=== PATIENT | male | born 1975 | race Caucasian/White ===

== ENCOUNTER 2018-10-31 09:00 | Emergency (ER) | payer OTHER ==
[2018-10-31 09:07] VITALS: BP 177/104; PULSE 72; RESP 18; TEMP 97.6
[2018-10-31] MEDS ORDERED: KETOROLAC 30 MG/ML 1 ML VIAL IM STA (09:23)
--- NOTE | 2018-10-31 09:25 | ED ---
Lower Extremity Injury HPI - General Chief Complaint: Extremity Injury, Lower Stated Complaint: [facility] - rt knee injury Time Seen by Provider: 10/31/18 09:08 Source: patient, RN notes reviewed, old records reviewed Mode of arrival: ambulatory Limitations: no limitations - History of Present Illness Initial Comments: Patient is a 42-year-old male who presents weren't department today with complaints of right knee pain. Patient reports that he's been having chronic issues with his knee after he fractured his patella 2 years ago. He states that he is in place had arthritis with the management after his patella fracture. Patient states that yesterday he was cleaning his barn when he slipped and fell on Saturday. He reports that his knee bent backward. Stretched his quadricep muscle. He complains of medial knee pain. - Related Data Home Medications Medication Instructions Recorded Confirmed Dextroamphetamine/Amphetamine 20 mg PO TID 10/31/18 10/31/18 [Adderall] Previous Rx's Medication Instructions Recorded Ibuprofen 600 mg PO TID #30 tablet 10/31/18 traMADol HCL [Ultram] 50 mg PO Q6HR PRN 3 Days #12 tab 10/31/18 Allergies Allergy/AdvReac Type Severity Reaction Status Date / Time No Known Allergies Allergy Verified 10/31/18 09:13 Review of Systems ROS Statement: Those systems with pertinent positive or pertinent negative responses have been documented in the HPI. ROS Other: All systems not noted in ROS Statement are negative. Past Medical History Past Medical History: No Reported History History of Any Multi-Drug Resistant Organisms: None Reported Past Surgical History: No Surgical Hx Reported Past Psychological History: ADD/ADHD Smoking Status: Never smoker Past Alcohol Use History: Occasional Past Drug Use History: None Reported General Exam Limitations: no limitations General appearance: alert, in no apparent distress Head exam: Present: atraumatic, normocephalic, normal inspection Eye exam: Present: normal appearance, PERRL, EOMI. Absent: scleral icterus, conjunctival injection, periorbital swelling ENT exam: Present: normal exam, mucous membranes moist Neck exam: Present: normal inspection. Absent: tenderness, meningismus, lymphadenopathy Respiratory exam: Present: normal lung sounds bilaterally. Absent: respiratory distress, wheezes, rales, rhonchi, stridor Cardiovascular Exam: Present: regular rate, normal rhythm, normal heart sounds. Absent: systolic murmur, diastolic murmur, rubs, gallop, clicks GI/Abdominal exam: Present: soft, normal bowel sounds. Absent: distended, tenderness, guarding, rebound, rigid Extremities exam: Present: normal inspection, full ROM, normal capillary refill. Absent: tenderness, pedal edema, joint swelling, calf tenderness Right Upper Leg exam: Present: normal inspection, full ROM Knee exam: Present: normal inspection, tenderness (Over her medial meniscus) Lower Leg exam: Present: normal inspection, full ROM Ankle exam: Present: normal inspection, full ROM Foot/Toe exam: Present: normal inspection, full ROM Back exam: Present: normal inspection Neurological exam: Present: alert, oriented X3, CN II-XII intact Psychiatric exam: Present: normal affect, normal mood Skin exam: Present: warm Course Vital Signs 10/31/18 09:05 Temperature 97.6 F Pulse Rate 72 Respiratory 18 Rate Blood Pressure 177/104 O2 Sat by Pulse 99 Oximetry Procedures - Orthopedic Splinting/Casting Injury #1 Side: right Lower Extremity Injury Location: knee Lower Extremity Immobilizer: knee immobilizer Medical Decision Making - Medical Decision Making 42-year-old male presents returns today with complaints of medial knee pain after slipping on Saturday yesterday causing his knee to stretch. He reports he felt a pop. Patient has tenderness and laxity over the medial collateral ligament. Patient is neurovascularly intact. Less than 2 second capillary refill and warm extremity noted. Patient knee x-rays reviewed and negative for any acute process. Aside Patient is placed in knee immobilizer. I discussed the Patient needs to follow-up with forensic specialist for possible further testing including MRI. Discussed antibiotic treatment medications for pain. Patient was given a note for work for short periods started to follow-up with orthopedics. SINCE HER RETURN PARAMETERS WERE DISCUSSED. - Radiology Data Radiology results: report reviewed No Acute fracture dislocation within the right knee. Disposition Clinical Impression: Right knee sprain Disposition: HOME SELF-CARE Condition: Good Instructions (If sedation given, give patient instructions): Knee Sprain (ED) Additional Instructions: Patient has follow-up with forensic specialist. Return to emergency depa rtment if any alarming signs or symptoms occur. Prescriptions: Ibuprofen 600 mg PO TID #30 tablet traMADol HCL [Ultram] 50 mg PO Q6HR PRN 3 Days #12 tab PRN Reason: Pain Is patient prescribed a controlled substance at d/c from ED?: No Referrals: Nonstaff,Physician [REFERRING] - 1-2 days Bigg Stephen PAC [PHYSICIAN GRAVITY PROSPECTING OBSERVER HELPER] - 1-2 days Time of Disposition: 09:45
--- NOTE | 2018-10-31 09:41 | XR ---
EXAMINATION TYPE: XR knee complete RT DATE OF EXAM: 10/31/2018 CLINICAL HISTORY: Right knee pain after fall TECHNIQUE: Three views of the right knee are obtained. COMPARISON: None. FINDINGS: There is no acute fracture/dislocation evident in right knee. The tri-compartment joint s paces demonstrate mild medial compartment joint space narrowing and subchondral cystic change of the tibial eminence. The overlying soft tissue appears unremarkable. IMPRESSION: There is no acute fracture or dislocation in the right knee.
== END 2018-10-31 10:10 | disposition home or self-care (01) ==
LOC: EC 09:00
DX: S83.91XA Sprain of unspecified site of right knee, initial encounter (principal); F90.9 Attention-deficit hyperactivity disorder, unspecified type; Z79.899 Other long term (current) drug therapy; W01.0XXA Fall on same level from slipping, tripping and stumbling without subsequent striking against object, initial encounter; Y93.H9 Activity, other involving exterior property and land maintenance, building and construction; Y92.69 Other specified industrial and construction area as the place of occurrence of the external cause; Y99.0 Civilian activity done for income or pay
CPT/HCPCS: 96372; 99284

== ENCOUNTER 2021-03-10 09:03 | Emergency (ER) | payer OTHER ==
[2021-03-10 09:14] VITALS: BP 128/77; PULSE 80; RESP 20; TEMP 98.7
--- NOTE | 2021-03-10 09:43 | ED ---
Lower Extremity Injury HPI - General Chief Complaint: Extremity Injury, Lower Stated Complaint: Foot injury Time Seen by Provider: 03/10/21 09:16 Source: patient, RN notes reviewed Mode of arrival: ambulatory Limitations: no limitations - History of Present Illness Initial Comments: 45-year-old male presents emergency Department with chief complaint right foot and ankle pain. 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 Patient states that he attempted to work at night states pain is been worsening along with increase in swelling. Patient does have some mild bruising noted no prior injuries and denies any prior fractures - Related Data Home Medications Medication Instructions Recorded Confirmed Dextroamphetamine/Amphetamine 20 mg PO TID 10/31/18 03/10/21 [Adderall] Ibuprofen [Motrin] 800 mg PO Q8H PRN 03/10/21 03/10/21 Previous Rx's Medication Instructions Recorded Ibuprofen [Motrin] 600 mg PO Q8HR PRN #20 tab 03/10/21 Allergies Allergy/AdvReac Type Severity Reaction Status Date / Time No Known Allergies Allergy Verified 03/10/21 10:14 Review of Systems ROS Statement: Those systems with pertinent positive or pertinent negative responses have been documented in the HPI. ROS Other: All systems not noted in ROS Statement are negative. Past Medical History Past Medical History: No Reported History History of Any Multi-Drug Resistant Organisms: None Reported Past Surgical History: Appendectomy Past Psychological History: ADD/ADHD Smoking Status: Never smoker Past Alcohol Use History: Occasional Past Drug Use History: None Reported General Exam Limitations: no limitations General appearance: alert, in no apparent distress Head exam: Present: atraumatic, normocephalic, normal inspection Respiratory exam: Present: normal lung sounds bilaterally. Absent: respiratory distress, wheezes, rales, rhonchi, stridor Cardiovascular Exam: Present: regular rate, normal rhythm, normal heart sounds. Absent: systolic murmur, diastolic murmur, rubs, gallop, clicks Extremities exam: Present: other (Right foot there is some swelling, ecchymosis noted the proximal foot, ankle region there is no significant malleolar tenderness no distal metatarsal tenderness including digits. Neurovascular intact) Skin exam: Present: warm, dry, intact, normal color. Absent: rash Course Vital Signs 08/27/21 09:12 Temperature 98.7 F Pulse Rate 80 Respiratory 20 Rate Blood Pressure 128/77 O2 Sat by Pulse 96 Oximetry Medical Decision Making - Medical Decision Making [id number] presented for right foot and ankle pain x-ray does not show an acute fracture. Patient has a right foot sprain we discharged in stable condition return parameters were discussed. Patient provided on-call orthopedics if no improvement. Disposition Clinical Impression: Right foot sprain Disposition: HOME SELF-CARE Condition: Stable Instructions (If sedation given, give patient instructions): Foot Sprain (ED) Additional Instructions: Please return to the Emergency Department if symptoms worsen or any other concerns. Prescriptions: Ibuprofen [Motrin] 600 mg PO Q8HR PRN #20 tab PRN Reason: Pain Is patient prescribed a controlled substance at d/c from ED?: No Referrals: Rg Gonzalez MD [Primary Care Provider] - 1-2 days Joce Warner MD [STAFF PHYSICIAN] - 1-2 days Time of Disposition: 10:29
--- NOTE | 2021-03-10 10:11 | XR ---
EXAMINATION TYPE: XR ankle complete 3 views RT, XR foot complete 3 views RT DATE OF EXAM: 03/10/2021 COMPARISON: NONE HISTORY: 45-year-old male dorsal right foot pain, swelling, and bruising for 3 days after injury. FINDINGS: Ankle: Ankle mortise is congruent. Preservation of the distal tibia-fibula overlap. Talar dome is intact. So me anterior soft tissue swelling is noted. No delineation to the Achilles tendon. Subtalar joint is a ligned. Foot: Dorsal ankle soft tissue swelling. No acute fracture, subluxation, dislocation. Some mild spurring al delfino the dorsal talar neck. IMPRESSION (ankle and foot): 1. Dorsal hindfoot soft tissue swelling. 2. Mild bony spurring noted along the dorsal talar neck. However, no acute osseous abnormality seen.
[2021-03-10] MEDS ORDERED: ACET/COD 300 MG/30 MG STARTER PACK 6 TAB BTL PO STA (10:34)
== END 2021-03-10 11:15 | disposition home or self-care (01) ==
LOC: EC 09:03
DX: S93.601A Unspecified sprain of right foot, initial encounter (principal); F90.9 Attention-deficit hyperactivity disorder, unspecified type; Y93.61 Activity, american tackle football
CPT/HCPCS: 99283

== ENCOUNTER 2021-08-18 00:28 | Emergency (ER) | payer OTHER ==
[2021-08-18] MEDS ORDERED: ALTEPLASE BOLUS 1 MG/1 ML SYRINGE IV STA (00:32)
[2021-08-18] MEDS ORDERED: ALTEPLASE 81 MG in EMPTY BAG 1 BAG IV STA (00:32)
--- NOTE | 2021-08-18 00:55 | CT ---
EXAMINATION TYPE: CODE STROKE: CT brain wo contr DATE OF EXAM: 08/18/2021 COMPARISON: None HISTORY: ams CT DLP: 1231.8 mGycm. Automated Exposure Control for Dose Reduction was Utilized. TECHNIQUE: CT scan of the head is performed without contrast. Ventricles have normal size. There is no mass effect or midline shift. There is no sign of intracrani al hemorrhage. The calvarium is intact. There is normal aeration of the mastoid sinuses. There is hallie e mucosal thickening in the ethmoid air cells. Skull base is intact. IMPRESSION: Negative CT scan of the brain. Mild ethmoid sinusitis.
[2021-08-18 00:57] LABS: Glucose,Whole Blood 113 mg/dL (75-99)
[2021-08-18] MEDS ORDERED: Alteplase PER PHARMACY Stroke 1 EACH MISC MISCELLANE PRN (01:00)
[2021-08-18 01:06] LABS: Basophils % (A) 0 %; Eosinophils # (A) 0.1 k/uL (0-0.7); Eosinophils % (A) 2 %; HCT 41.6 % (39.0-53.0); HGB 14.2 gm/dL (13.0-17.5); Lymphocytes # (A) 3.1 k/uL (1.0-4.8); Lymphocytes % (A) 41 %; MCH 30.6 pg (25.0-35.0); MCHC 34.2 g/dL (31.0-37.0); MCV 89.5 fL (80.0-100.0); Mean Platelet Volume 7.9; Monocytes # (A) 0.5 k/uL (0-1.0); Monocytes % (A) 7 %; Neutrophils # (A) 3.5 k/uL (1.3-7.7); Neutrophils % (A) 47 %; Platelet Count 207 k/uL (150-450); RBC 4.65 m/uL (4.30-5.90); WBC 7.6 k/uL (3.8-10.6)
--- NOTE | 2021-08-18 01:12 | ED ---
Neuro HPI - General Chief Complaint: Neuro Symptoms/Deficit Stated Complaint: Stroke Time Seen by Provider: 08/18/21 00:30 Source: patient, family, EMS Mode of arrival: EMS Limitations: altered mental status (Delirium versus intoxication) - History of Present Illness Is the patient presenting with stroke symptoms?: Yes Last Known Well Date: 08/17/21 Last Known Well Time: 23:00 Onset/Timin -: hour(s) Initial Comments: This patient is a 45-year-old man brought by ambulance to be evaluated for suspected stroke. Most history is from patient's who states that the patient had gone to bed normal at 11 PM. She Him at midnight and he had left-sided facial weakness left arm and left leg weakness. Patient had been drinking alcohol earlier probably up to 12 beers or so. The patient denies headache. Denies dyspnea. He is having nausea. Location: left face, left arm, left leg History of same: No Place: home Severity: severe Quality: weak, numb Improves With: none Worsens With: none On Anticoagulants: No Associated Symptoms: nausea/vomiting Treatments Prior to Arrival: none - Related Data Home Medications: Home Medications Medication Instructions Recorded Confirmed Dextroamphetamine/Amphetamine 20 mg PO TID 10/31/18 03/10/21 [Adderall] Ibuprofen [Motrin] 800 mg PO Q8H PRN 03/10/21 03/10/21 Previous Rx's Medication Instructions Recorded Ibuprofen [Motrin] 600 mg PO Q8HR PRN #20 tab 03/10/21 Allergies/Adverse Reactions: Allergies Allergy/AdvReac Type Severity Reaction Status Date / Time No Known Allergies Allergy Verified 03/10/21 10:14 Review of Systems ROS Statement: Those systems with pertinent positive or pertinent negative responses have been documented in the HPI. ROS Other: All systems not noted in ROS Statement are negative. General Exam Limitations: altered mental status (Delirium versus intoxication) General appearance: appears intoxicated Head exam: Present: atraumatic, normocephalic Eye exam: Present: normal appearance, PERRL. Absent: scleral icterus, conjunctival injection ENT exam: Present: normal oropharynx, mucous membranes moist Neck exam: Present: normal inspection, full ROM. Absent: tenderness, meningismus Respiratory exam: Present: normal lung sounds bilaterally. Absent: respiratory distress, wheezes, rales, rhonchi, stridor Cardiovascular Exam: Present: regular rate, normal rhythm, normal heart sounds. Absent: systolic murmur, diastolic murmur, rubs, gallop GI/Abdominal exam: Present: soft. Absent: distended, tenderness, guarding, rebound, rigid, mass Extremities exam: Present: normal inspection, normal capillary refill. Absent: pedal edema, calf tenderness Back exam: Present: normal inspection. Absent: vertebral tenderness Neurological exam: Present: alert, CN II-XII intact, motor sensory deficit, other (The patient does have left-sided facial and body weakness. See attached NIH score). Absent: oriented X3 (Patient is oriented only to person.) Skin exam: Present: warm, dry, intact, normal color. Absent: rash Stroke MDM - Lab Data Result diagrams: 08/18/21 00:50 08/18/21 00:50 Lab Results 08/18/21 08/18/21 08/18/21 Range/Units 00:46 00:50 00:50 WBC 7.6 (3.8-10.6) k/uL RBC 4.65 (4.30-5.90) m/uL Hgb 14.2 (13.0-17.5) gm/dL Hct 41.6 (39.0-53.0) % MCV 89.5 (80.0-100.0) fL MCH 30.6 (25.0-35.0) pg MCHC 34.2 (31.0-37.0) g/dL RDW 13.0 (11.5-15.5) % Plt Count 207 (150-450) k/uL MPV 7.9 Neutrophils % 47 % Lymphocytes % 41 % Monocytes % 7 % Eosinophils % 2 % Basophils % 0 % Neutrophils # 3.5 (1.3-7.7) k/uL Lymphocytes # 3.1 (1.0-4.8) k/uL Monocytes # 0.5 (0-1.0) k/uL Eosinophils # 0.1 (0-0.7) k/uL Basophils # 0.0 (0-0.2) k/uL PT 10.5 (9.0-12.0) sec INR 1.0 (<1.2) APTT 22.0 (22.0-30.0) sec Sodium (137-145) mmol/L Potassium (3.5-5.1) mmol/L Chloride (98-107) mmol/L Carbon Dioxide (22-30) mmol/L Anion Gap mmol/L BUN (9-20) mg/dL Creatinine (0.66-1.25) mg/dL Est GFR (CKD-EPI)AfAm (>60 ml/min/1.73 sqM) Est GFR (CKD-EPI)NonAf (>60 ml/min/1.73 sqM) Glucose (74-99) mg/dL POC Glucose (mg/dL) 113 H (75-99) mg/dL POC Glu Assistant Mechanic ID Dutch Mcneill Calcium (8.4-10.2) mg/dL Total Bilirubin (0.2-1.3) mg/dL AST (17-59) U/L ALT (4-49) U/L Alkaline Phosphatase (38-126) U/L Troponin I (0.000-0.034) ng/mL Total Protein (6.3-8.2) g/dL Albumin (3.5-5.0) g/dL 08/18/21 08/18/21 Range/Units 00:50 00:50 WBC (3.8-10.6) k/uL RBC (4.30-5.90) m/uL Hgb (13.0-17.5) gm/dL Hct (39.0-53.0) % MCV (80.0-100.0) fL MCH (25.0-35.0) pg MCHC (31.0-37.0) g/dL RDW (11.5-15.5) % Plt Count (150-450) k/uL MPV Neutrophils % % Lymphocytes % % Monocytes % % Eosinophils % % Basophils % % Neutrophils # (1.3-7.7) k/uL Lymphocytes # (1.0-4.8) k/uL Monocytes # (0-1.0) k/uL Eosinophils # (0-0.7) k/uL Basophils # (0-0.2) k/uL PT (9.0-12.0) sec INR (<1.2) APTT (22.0-30.0) sec Sodium 137 (137-145) mmol/L Potassium 3.6 (3.5-5.1) mmol/L Chloride 105 (98-107) mmol/L Carbon Dioxide 19 L (22-30) mmol/L Anion Gap 13 mmol/L BUN 8 L (9-20) mg/dL Creatinine 0.91 (0.66-1.25) mg/dL Est GFR (CKD-EPI)AfAm >90 (>60 ml/min/1.73 sqM) Est GFR (CKD-EPI)NonAf >90 (>60 ml/min/1.73 sqM) Glucose 118 H (74-99) mg/dL POC Glucose (mg/dL) (75-99) mg/dL POC Glu Assistant Mechanic ID Calcium 8.6 (8.4-10.2) mg/dL Total Bilirubin 0.5 (0.2-1.3) mg/dL AST 48 (17-59) U/L ALT 92 H (4-49) U/L Alkaline Phosphatase 77 (38-126) U/L Troponin I <0.012 (0.000-0.034) ng/mL Total Protein 6.4 (6.3-8.2) g/dL Albumin 3.9 (3.5-5.0) g/dL - NIH Stroke Scale 1a. Level of Consciousness: (0) alert 1b. LOC Questions: (0) answers correctly 1c. LOC Commands: (0) performs tasks correctly 2. Best Gaze: (0) normal 3. Visual: (0) no visual loss 4. Facial Palsy: (1) minor paralysis 5a. Motor Arm Left: (4) no movement 6a. Motor Leg Left: (4) no movement 7. Limb Ataxia: (2) present 2 limbs 8. Sensory: (0) normal 9. Best Language: (0) no aphasia 10. Dysarthria: (0) normal 11. Extinction/Inattention: (0) no abnormality - EKG Data -: EKG Interpreted by Ne EKG shows normal: sinus rhythm, axis (Normal), intervals (Normal), QRS complexes (There is a nonspecific intraventricular conduction delay), ST-T waves (Normal) Rate: normal (Rate 66 bpm) Past Medical History Past Medical History: GERD/Reflux Additional Past Medical History / Comment(s): erectile dysfuction History of Any Multi-Drug Resistant Organisms: None Reported Past Surgical History: Appendectomy Past Psychological History: ADD/ADHD, Depression Smoking Status: Never smoker Past Alcohol Use History: Daily Past Drug Use History: Marijuana Course Vital Signs 08/18/21 08/18/21 08/18/21 00:46 01:00 01:15 Pulse Rate 80 61 63 Respiratory 23 18 20 Rate Blood Pressure 180/98 124/80 125/72 O2 Sat by Pulse 89 L 94 L 94 L Oximetry - Reevaluation(s) Reevaluation #1: 08/18/21 01:21 This patient is a 45-year-old man who arrives by ambulance for left-sided weakness. He is sent directly for computed tomography scan. He is examined, history and physical consistent with acute ischemic stroke. I reviewed CT which does appear to show right middle cerebral artery occlusion. I have discussed case with the stroke team and Dr. Shannon would like get TPA given and patient brought directly for neuro interventional procedure at [facility]. The patient's did give informed consent after discussion of risks and benefits and indications. Critical Care Time Critical Care Time: Yes (40 minutes) Disposition Clinical Impression: Cerebrovascular accident (CVA) Disposition: OTHER INSTITUTION NOT DEFINED Condition: Serious Is patient prescribed a controlled substance at d/c from ED?: No Referrals: Rg Gonzalez MD [Primary Care Provider] - 1-2 days
[2021-08-18 01:15] LABS: ALT 92 U/L (4-49); AST 48 U/L (17-59); African American GFR (CKD) >90 (>60 ml/min/1.73 sqM); Albumin 3.9 g/dL (3.5-5.0); Alkaline Phosphatase 77 U/L (38-126); Anion Gap 13 mmol/L; Blood Urea Nitrogen 8 mg/dL (9-20); Calcium 8.6 mg/dL (8.4-10.2); Carbon Dioxide 19 mmol/L (22-30); Chloride 105 mmol/L (98-107); Glucose 118 mg/dL (74-99); Non-African American GFR(CKD) >90 (>60 ml/min/1.73 sqM); Potassium 3.6 mmol/L (3.5-5.1); Sodium 137 mmol/L (137-145); Total Bilirubin 0.5 mg/dL (0.2-1.3); Total Protein 6.4 g/dL (6.3-8.2)
--- NOTE | 2021-08-18 01:15 | CT ---
EXAMINATION TYPE: CODE STROKE: CTA head neck DATE OF EXAM: 08/18/2021 COMPARISON: None HISTORY: AMS CT DLP: 981.8 mGycm Automated exposure control for dose reduction was used. CONTRAST: Performed with IV Contrast, patient injected with 65 mL of Isovue 370. Images obtained from the aortic arch to the vertex of the brain with IV contrast. There are Three-D p ostprocessed images. There is normal branching pattern of the great vessels on the aortic arch. There is bilateral arteria l flow in the subclavian arteries. There is arterial flow in the common internal and external carotid arteries bilaterally. There is wide patency of the carotid artery bifurcations. There is bilateral a rterial flow in the vertebral arteries. There is arterial flow the vertebrobasilar artery system. There is arterial flow in the anterior middle and posterior cerebral arteries. I see no evidence of i ntracranial aneurysm or neovascularity. There is no mass effect. There appears to be significant genie nal narrowing of the right middle cerebral artery. There is limited arterial flow in the middle cereb ral artery in the sylvian fissure. There is approximate 1.5 cm segment of right middle cerebral arter y with severe stenosis. There is normal enhancement of the venous sinuses. IMPRESSION: Negative CT angiogram of the neck. There is subtotal occlusion of the right middle cerebral artery.
[2021-08-18 01:23] LABS: Prothrombin Time 10.5 sec (9.0-12.0)
--- NOTE | 2021-08-18 01:25 | XR ---
EXAMINATION TYPE: XR chest 1V portable DATE OF EXAM: 08/18/2021 COMPARISON: NONE HISTORY: Altered mental status TECHNIQUE: Single view FINDINGS: There is no heart failure nor confluent pneumonic infiltrate. Costophrenic angles are clear . There is mild subsegmental atelectasis right lung base. There are chest leads. Heart size is fairly normal. IMPRESSION: Mild subsegmental atelectasis right lung base. Normal heart.
[2021-08-18] MEDS ORDERED: SODIUM CHLORIDE 0.9% 50 ML MINI-BAG IV ONE (01:36)
[2021-08-18 02:39] VITALS: BP 133/80; PULSE 80; RESP 19
== END 2021-08-18 02:20 | disposition other institution (70) ==
LOC: EC 00:28
DX: I63.9 Cerebral infarction, unspecified (principal); K21.9 Gastro-esophageal reflux disease without esophagitis; F90.9 Attention-deficit hyperactivity disorder, unspecified type; F32.A Depression, unspecified; F12.90 Cannabis use, unspecified, uncomplicated; Z90.49 Acquired absence of other specified parts of digestive tract
CPT/HCPCS: 36415; 37195; 70450; 70496; 70498; 71045; 80053; 84484; 85025; 85610; 85730; 93005; 99291

== ENCOUNTER → 2024-02-22 | Outpatient (CLI) | payer OTHER | END | disposition home or self-care (01) | LOC: LABPRL 11:35 | PROVIDERS: ATTEND Specialist | CPT/HCPCS: 80053; 82550; 85025; 85652; 86140 ==

== ENCOUNTER → 2024-02-25 | Outpatient (CLI) | payer MEDICARE, OTHER | END | disposition home or self-care (01) | LOC: LABPRL 12:10 | PROVIDERS: ATTEND Specialist | CPT/HCPCS: 85652 ==

== ENCOUNTER → 2024-03-03 | Outpatient (CLI) | payer MEDICARE, OTHER | END | disposition home or self-care (01) | LOC: LABPRL 13:50 | PROVIDERS: ATTEND Specialist | CPT/HCPCS: 85652 ==

== ENCOUNTER → 2024-04-01 | Day surgery (SDC) | payer MEDICARE, OTHER ==
[2024-03-31 11:50] VITALS: BMI 27.5
== END ==
LOC: CATHCVL 09:06
PROVIDERS: ATTEND Specialist
DX: Z45.2 Encounter for adjustment and management of vascular access device
CPT/HCPCS: 36573; C1751

== ENCOUNTER 2024-07-01 11:03 | Day surgery (SDC) | payer MEDICARE, OTHER ==
--- NOTE | 2024-07-01 13:35 | US ---
EXAMINATION TYPE: US guided soft tissue drainage with pigtail catheter placement. DATE OF EXAM: 07/01/2024 1:20 PM COMPARISON: None CLINICAL INDICATION:Male, 48 years old with history of Z98.890 OTHER SPECIFIED POSTPROCEDURAL STATES; , [facility] TECHNIQUE: Ultrasound guided fluid aspiration. PROCEDURE: Informed consent was obtained. Risks including bleeding, infection, damage to surrounding structures, and the potential need for further procedures as well as benefits were explained. All patient questi ons were answered. Initial ultrasound localizer images were taken which showed safest allowable access to the left back fluid collection. The patient was prepped, draped in the usual sterile fashion, and locally anesthet ized. Utilizing trocar technique a 8.5 austrian pig tail catheter was placed the left back fluid collec tion and left in place. Approximately 2 mL of serous was drained. A drainage bag was then attached the catheter. There was minimal blood loss and post-procedure hemostasis was achieved. The patient tolerated the procedure w ell without complication. IMPRESSION: Ultrasound guided placement of a percutaneous pigtail drainage catheter which was left in place. [facility], , 07/01/2024 1:33 PM
[2024-07-01 13:41] VITALS: RESP 16; TEMP 98
[2024-07-01 13:43] VITALS: BP 108/68; PULSE 76
== END 2024-07-01 13:30 | disposition home or self-care (01) ==
LOC: RADPROMAIN 11:03
PROVIDERS: ATTEND Plastic Surgery
DX: Z98.890 Other specified postprocedural states (principal); Z46.82 Encounter for fitting and adjustment of non-vascular catheter
CPT/HCPCS: 10030; 76942